=== PATIENT | male | born 1950 ===

== ENCOUNTER 2018-08-07 12:08 | Emergency (ER) | payer MEDICARE, MEDICAID ==
[2018-08-07 12:59] VITALS: RESP 16; TEMP 98.6; O2SAT 99
[2018-08-07] MEDS ORDERED: Sodium Chloride 0.9% 1,000 ML IV STA (13:41)
[2018-08-07 14:07] LABS: BASO % 0.2 % (0.0-2.0); EOS # 0.5 K/uL (0.0-0.7); EOS % 3.4 % (0.0-4.0); HEMOGLOBIN 15.2 g/dL (12.0-18.0); LYMPH # 1.3 K/uL (1.0-4.3); LYMPH % 9.1 % (20.0-40.0); MEAN CELL VOLUME 84.6 fl (80.0-94.0); MEAN CORPUSCULAR HEMOGLOBIN 27.3 pg (27.0-31.0); MEAN CORPUSCULAR HGB CONC 32.3 g/dL (33.0-37.0); MEAN PLATELET VOLUME 8.5 fl (7.2-11.7); MONO # 0.9 K/uL (0.0-0.8); MONO % 6.9 % (0.0-10.0); NEUT % 80.4 % (50.0-75.0); NRBC % 0.1 % (0.0-0.0); PLATELET COUNT 301 K/uL (130-400); RBC 5.57 Mil/uL (4.40-5.90); RED CELL DISTRIBUTION WIDTH 13.9 % (11.5-14.5); WHITE BLOOD COUNT 13.7 K/uL (4.8-10.8)
[2018-08-07 14:17] LABS: ALB/GLOB RATIO 1.2 (1.0-2.1); ALBUMIN 4.8 g/dL (3.5-5.0); ALT/SGPT 23 U/L (21-72); AST/SGOT 22 U/L (17-59); BLOOD UREA NITROGEN 15 mg/dl (9-20); CALCIUM 9.9 mg/dL (8.4-10.2); GFR NON-AFRICAN AMERICAN > 60
--- NOTE | 2018-08-07 14:18 | ED PDOC ---
Syncope/Near Syncope/Dizziness Time Seen by Provider: 08/07/18 13:08 Chief Complaint (Nursing): Dizziness/Lightheaded Chief Complaint (Provider): dizziness History Per: Patient History/Exam Limitations: no limitations Activity At Onset Of Symptoms: Lying, Had Just Stood up Additional Complaint(s): 68 y/o M with HTN who presents with dizziness since this morning. Pt states that he drank 2 - 3 glasses of rum last night and woke up this morning with the room spinning. He got up and walked to the bathroom and felt so dizzy that he fell to the ground. Denies LOC or head trauma. He continues to feel dizzy so presented to ER. Denies recent N/V, diarrhea. He has been eating and drinking normally. He admits to recently having a ticking sound in his left ear. Denies hx of HL, CAD/CA, CVA/TIA. Denies unilateral weakness, palpitations, C/P, SOB, N/V, diarrhea, speech disturbance, gait abnormality. Past Medical History Reviewed: Historical Data, Nursing Documentation, Vital Signs Vital Signs: Last Vital Signs Temp 98.6 F 08/07/18 12:56 Pulse 85 08/07/18 12:56 Resp 16 08/07/18 12:56 BP 93/64 L 08/07/18 12:56 Pulse Ox 99 08/07/18 12:56 - Medical History PMH: HTN - Family History Family History: States: Unknown Family Hx - Home Medications Home Medications: Ambulatory Orders Medication Instructions Recorded Famotidine [Pepcid] 20 mg PO DAILY PRN 7 Days tab 08/07/18 Meclizine [Meclizine*] 25 mg PO Q6 7 Days tab 08/07/18 - Allergies Allergies/Adverse Reactions: Allergies Allergy/AdvReac Type Severity Reaction Status Date / Time Penicillins Allergy DIZZINESS Verified 08/07/18 12:53 Physical Exam - Reviewed Nursing Documentation Reviewed: Yes Vital Signs Reviewed: Yes - Physical Exam Appears: Positive for: Non-toxic Head Exam: Positive for: ATRAUMATIC Skin: Positive for: Normal Color Eye Exam: Positive for: PERRL. Negative for: Nystagmus ENT: Positive for: Normal ENT Inspection Neck: Positive for: Normal Cardiovascular/Chest: Positive for: Regular Rate, Rhythm Respiratory: Positive for: Normal Breath Sounds Gastrointestinal/Abdominal: Positive for: Tenderness (epigastrium). 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 Negative for: Aphasia, Facial Droop - Laboratory Results Result Diagrams: 08/07/18 14:01 08/07/18 14:01 - ECG O2 Sat by Pulse Oximetry: 99 Medical Decision Making Medical Decision Making: CBC, CMP EKG: sinus, HR 82, no ischemic change, no heart block. Head CT w/o contrast Meclizine 25mg PO x 1 Normal saline 1L IV 14:40: re-evaluated, epigastric tenderness has improved somewhat as has dizziness (althoug still present) after receiving 200cc of IV fluids and Meclizine. Pepcid 20mg IV x [address] and completion of fluid bolus. Head CT: No intracranial hemorrhage or mass effect. Mild cerebral atrophy. No nspecific bilateral patchy periventricular and subcortical white matter hypodensities-compatible with microvascular ischemic changes-as described above. No significant edema with mass effect suggested. Pt re-evaluated: Continues to have mild dizziness especially with quick turns of the head, ambulating with steady gait. Results of CT scan explained to patient and Glucose of 180 on BMP suggestive of possible diagnosis of diabetes. Patient admits to not having seen a physician in at least [address] Waller tomorrow for f/u. Return instructions provided and prescription for Meclizine given. Pt referred to ENT (Dr. De La Vega) for ringing in ears and possible vertigo. Disposition - Clinical Impression Clinical Impression: Vertigo - Patient ED Disposition Is Patient to be Admitted: No Counseled Patient/Family Regarding: Studies Performed, Diagnosis, Need For Followup, Rx Given - Disposition Referrals: Steven De La Vega MD [Staff Provider] - Shane Waller MD [Family Provider] - Disposition: Routine/Home Disposition Time: 18:32 Condition: STABLE Additional Instructions: F/u with your primary care doctor as soon as possible for routine care and evaluation of possible diabetes. F/u with Dr. De La Vega or ENT for further evaluation of ringing in ears/vertigo. Refrain from drinking alcohol for now. Return to ER if dizziness worsens or you have visual/speech changes Prescriptions: Famotidine [Pepcid] 20 mg PO DAILY PRN 7 Days tab PRN Reason: Indigestion Meclizine [Meclizine*] 25 mg PO Q6 7 Days tab Instructions: Vertigo (a Type of Dizziness) (DC), Dizziness, Nonvertigo, (DC) Forms: [employer] (Mosotho) Print Language: MACEDONIAN
[2018-08-07 14:55] LABS: BANDS 1 % (0-2); EOSINOPHIL 4 % (0-7); LYMPHOCYTE 11 % (20-50); MONOCYTE 8 % (0-10); NEUTROPHIL 76 % (42-75); TOTAL CELLS COUNTED 100
[2018-08-07 14:56] LABS: PLATELET ESTIMATE NORMAL (NORMAL)
--- NOTE | 2018-08-07 15:21 | CT ---
Date of service: 08/07/2018 PROCEDURE: CT HEAD WITHOUT CONTRAST. HISTORY: dizziness COMPARISON: None available. TECHNIQUE: Axial computed tomography images were obtained through the head/brain without intravenous contrast. Radiation dose: Total exam DLP = 722.34 mGy-cm. This CT exam was performed using one or more of the following dose reduction techniques: Automated exposure control, adjustment of the mA and/or kV according to patient size, and/or use of iterative reconstruction technique. FINDINGS: HEMORRHAGE: No intracranial hemorrhage. BRAIN: No mass effect or edema. Mild frontal cerebral atrophy. Multi focal small and patchy areas of periventricular and subcortical white matter hypodensities-microvascular chronic ischemic changes are believed most likely. No associated mass effect. VENTRICLES: Unremarkable. No hydrocephalus. CALVARIUM: Unremarkable. PARANASAL SINUSES: Unremarkable as visualized. No significant inflammatory changes. MASTOID AIR CELLS: Unremarkable as visualized. No inflammatory changes. OTHER FINDINGS: Cavernous and supraclinoid internal carotid artery bilateral atherosclerotic vascular calcifications. IMPRESSION: No intracranial hemorrhage or mass effect. Mild cerebral atrophy. Nonspecific bilateral patchy periventricular and subcortical white matter hypodensities-compatible with microvascular ischemic changes-as described above. No significant edema with mass effect suggested.
[2018-08-07 18:34] VITALS: BP 137/89; PULSE 82
--- NOTE | 2018-08-08 00:05 | CARD ---
APPROVED REPORT Date of service: 08/07/2018 EKG Measurement Heart [id number] <Conclusion> Normal sinus rhythm Normal ECG
== END 2018-08-07 16:52 | disposition home or self-care (01) ==
LOC: H.ER 12:08
DX: R42 Dizziness and giddiness (principal)
CPT/HCPCS: 70450; 80053; 85025; 93005; 96361; 96374; 99285; J7030